=== PATIENT | female | born 1990 | race African-American/Black ===

== ENCOUNTER 2020-09-29 02:21 | Emergency (ER) | payer MEDICAID ==
[~2020-09-29] VITALS: Ht 175.3 cm; Wt 92.0 kg
[2020-09-29 02:47] VITALS: BP 131/81
== END 2020-09-29 04:00 | disposition left against medical advice (07) ==
LOC: ER 02:21
DX: Z47.89 Encounter for other orthopedic aftercare (principal); S62.92XD Unspecified fracture of left hand, subsequent encounter for fracture with routine healing
CPT/HCPCS: 99281

== ENCOUNTER 2020-10-06 00:48 | Emergency (ER) | payer MEDICAID ==
[~2020-10-06] VITALS: Ht 172.7 cm; Wt 76.0 kg
[2020-10-06 01:01] VITALS: BP 149/108
[2020-10-06 01:50] LABS: CLARITY URINE CLOUDY (CLEAR); COLOR URINE YELLOW (YELLOW); KETONES URINE NEGATIVE (NEGATIVE); LEUKOCYTE ESTERASE URINE TRACE (NEGATIVE); NITRITE URINE POSITIVE (NEGATIVE); OCCULT BLOOD URINE NEGATIVE (NEGATIVE); PH URINE 7.5 (4.5-8.0); PROTEIN URINE NEGATIVE (NEGATIVE); SPECIFIC GRAVITY URINE 1.018 (1.005-1.030)
[2020-10-06] MEDS ORDERED: ACETAMINOPHEN 500MG TABLET PO ONE (02:15)
[2020-10-06] MEDS ORDERED: CEFTRIAXONE SODIUM 500 MG/VIAL IM ONE (02:15)
== END 2020-10-06 03:03 | disposition home or self-care (01) ==
LOC: ER 00:48
DX: S62.613A Displaced fracture of proximal phalanx of left middle finger, initial encounter for closed fracture (principal); Y04.0XXA Assault by unarmed brawl or fight, initial encounter; Y93.89 Activity, other specified; Y92.89 Other specified places as the place of occurrence of the external cause; N39.0 Urinary tract infection, site not specified; A64 Unspecified sexually transmitted disease; R03.0 Elevated blood-pressure reading, without diagnosis of hypertension
CPT/HCPCS: 73130; 81003; 81025; 96372; 99284; J0696

== ENCOUNTER 2020-10-22 02:55 | Emergency (ER) | payer MEDICAID, OTHER ==
[~2020-10-22] VITALS: Ht 175.3 cm; Wt 91.0 kg
[2020-10-22] MEDS ORDERED: DOXYCYCLINE HYCLATE 100MG CAPSULE PO ONE (03:30)
[2020-10-22] MEDS ORDERED: CEFTRIAXONE SODIUM 500 MG/VIAL IM ONE (03:30)
[2020-10-22 04:20] VITALS: BP 142/82
[2020-10-23 09:09] LABS: HIV SCREEN 4G Non Reactive (Non Reactive)
== END 2020-10-22 04:20 | disposition home or self-care (01) ==
LOC: ER 02:55
DX: Z11.3 Encounter for screening for infections with a predominantly sexual mode of transmission (principal)
CPT/HCPCS: 81025; 86592; 86694; 86695; 86696; 87389; 96372; 99283; J0696

== ENCOUNTER 2020-11-03 10:39 | Emergency (ER) | payer OTHER ==
[~2020-11-03] VITALS: Ht 177.8 cm; Wt 85.0 kg
[2020-11-03 10:51] VITALS: BP 143/96
== END 2020-11-03 12:13 | disposition home or self-care (01) ==
LOC: ER 10:39
DX: J40 Bronchitis, not specified as acute or chronic (principal); Z72.0 Tobacco use; F12.90 Cannabis use, unspecified, uncomplicated
CPT/HCPCS: 99283

== ENCOUNTER 2022-02-03 10:34 | Emergency (ER) | payer OTHER ==
[~2022-02-03] VITALS: Ht 175.3 cm; Wt 91.0 kg
[2022-02-03 10:35] VITALS: BP 143/106
== END 2022-02-03 13:55 | disposition left against medical advice (07) ==
LOC: ER 13:08
DX: M79.601 Pain in right arm (principal)
CPT/HCPCS: 99281

== ENCOUNTER 2022-04-24 06:42 | Emergency (ER) | payer OTHER ==
[~2022-04-24] VITALS: Ht 180.3 cm; Wt 91.7 kg
[2022-04-24 06:43] VITALS: BP 128/98
== END 2022-04-24 08:20 | disposition left against medical advice (07) ==
LOC: ER 06:42
DX: M79.641 Pain in right hand (principal)
CPT/HCPCS: 99281

== ENCOUNTER 2022-04-25 17:19 | Emergency (ER) | payer OTHER ==
[~2022-04-25] VITALS: Ht 162.6 cm; Wt 68.0 kg
[2022-04-25 17:25] VITALS: BP 132/94
== END 2022-04-25 19:13 | disposition home or self-care (01) ==
LOC: ER 17:19
DX: T40.991A Poisoning by other psychodysleptics [hallucinogens], accidental (unintentional), initial encounter (principal); Z98.890 Other specified postprocedural states; Y92.9 Unspecified place or not applicable
CPT/HCPCS: 71045; 82962; 93005; 99283

== ENCOUNTER 2022-07-05 21:27 | Emergency (ER) | payer OTHER | END 2022-07-05 23:39 | disposition left against medical advice (07) | LOC: ER 21:27 | DX: Z53.21 Procedure and treatment not carried out due to patient leaving prior to being seen by health care provider (principal) ==

== ENCOUNTER 2022-07-05 23:59 | Emergency (ER) | payer OTHER | END 2022-07-06 02:18 | disposition left against medical advice (07) | LOC: ER 23:59 | DX: Z53.21 Procedure and treatment not carried out due to patient leaving prior to being seen by health care provider (principal) ==